=== PATIENT | male | born 1960 | race Caucasian/White ===

== ENCOUNTER 2024-02-20 08:07 | Day surgery (SDC) | payer BC ==
[2024-02-20] MEDS ORDERED: GLYCOPYRROLATE 0.2 MG/ML 2 ML VIAL ONE (09:40)
[2024-02-20] MEDS ORDERED: PROPOFOL 10 MG/ML 20 ML VIAL IV ONE (09:40)
[2024-02-20] MEDS ORDERED: LACTATED RINGERS 1,000 ML BAG ONE (09:40)
[2024-02-20] MEDS ORDERED: HYDROmorphone 0.5 MG/0.5 ML SYRINGE ONE ×2 (10:49)
[2024-02-20] MEDS ORDERED: ONDANSETRON 4 MG/2 ML VIAL ONE ×2 (10:53)
[2024-02-20] MEDS ORDERED: METOCLOPRAMIDE 5 MG/ML 2 ML VIAL ONE ×2 (12:38)
--- NOTE | 2024-02-21 15:57 | PCN ---
PROCEDURE NOTE PROCEDURE PERFORMED: Screening colonoscopy. PREOPERATIVE DIAGNOSES: 1. Screening colonoscopy. 2. Family history of colon cancer. POSTOPERATIVE DIAGNOSIS: Transverse colon polyp. SURGEON: Dr. Grande. WELDER FIRST CLASS: None. ANESTHESIA: MAC. DESCRIPTION OF PROCEDURE: The patient was placed on the endoscopy table in lateral position. He received IV sedation. Digital rectal exam was performed, which revealed no abnormalities. The flexible colonoscope was then placed in the patient's anus and passed throughout the entire colon. The ileocecal valve was visualized. The cecum and ascending colon appeared normal. In the transverse colon, there was a small sessile polyp. This was removed with the cold forceps. The remainder of the transverse colon appeared normal. The descending and sigmoid colon appeared normal. The scope was withdrawn from the patient. SUMMARY OF FINDINGS: Transverse colon polyp, pathology pending. MMODL / IJN: [id number] /
== END 2024-02-20 13:50 ==
LOC: ORWHC2ENDO 08:07
PROVIDERS: ATTEND Surgery
DX: Z12.11 Encounter for screening for malignant neoplasm of colon (principal); D12.3 Benign neoplasm of transverse colon; E78.5 Hyperlipidemia, unspecified; Z80.0 Family history of malignant neoplasm of digestive organs; Z79.899 Other long term (current) drug therapy
CPT/HCPCS: 45380; 88305